=== PATIENT | male | born 2000 | race Hispanic/Latino ===

== ENCOUNTER 2024-12-23 21:07 | Emergency (ER) | payer OTHER ==
[~2024-12-23] VITALS: Ht 170.2 cm; Wt 83.9 kg
[2024-12-23 21:26] VITALS: TEMP 98.4
[2024-12-23 21:59] LABS: BASOPHILS % 0.2 % (0.0-1.0); EOSINOPHILS % 0.3 % (0.0-6.0); HEMATOCRIT 40.4 % (38.2-49.6); HEMOGLOBIN 13.9 g/dL (14.0-18.0); LYMPHOCYTES # (AUTO) 2.2 (1.0-3.2); LYMPHOCYTES % 16.3 % (18.0-39.1); MEAN CORPUSCULAR HGB CONC 34.4 g/dL (31-35); MEAN CORPUSCULAR VOLUME 87.3 fL (81-99); MONOCYTES # (AUTO) 1.1 (0.2-0.8); MONOCYTES % 8.1 % (4.4-11.3); NEUTROPHILS # (AUTO) 10.1 (2.1-6.9); NEUTROPHILS % 74.8 % (38.7-80.0); PLATELET COUNT 249 x10e3/uL (140-360); RED BLOOD COUNT 4.63 x10e6/uL (4.3-5.7); RED CELL DISTRIBUTION WIDTH 12.5 % (11.7-14.4); WHITE BLOOD COUNT 13.53 x10e3/uL (4.8-10.8)
[2024-12-23 22:01] LABS: ALBUMIN 4.3 g/dL (3.5-5.0); ALBUMIN/GLOBULIN RATIO 1.4 (0.8-2.0); ANION GAP 15.4 mmol/L (8-16); BILIRUBIN,TOTAL 0.5 mg/dL (0.2-1.2); CALCIUM 9.1 mg/dL (8.4-10.2); TOTAL PROTEIN 7.3 g/dL (6.5-8.1)
[2024-12-23 22:05] LABS: POTASSIUM 3.4 mmol/L (3.5-5.1)
[2024-12-23 22:27] VITALS: PULSE 73; RESP 17
[2024-12-23 23:15] VITALS: BP 133/91; PULSE 71; RESP 17; O2SAT 100
[2024-12-24] MEDS ORDERED: IOPAMIDOL 370 MG/ML 100 ML INFUS..BTL INJ ONE (05:47)
== END 2024-12-23 23:11 | disposition home or self-care (01) ==
LOC: ER 21:38
DX: M54.2 Cervicalgia (principal); M25.561 Pain in right knee; M25.571 Pain in right ankle and joints of right foot; S80.211A Abrasion, right knee, initial encounter; S30.810A Abrasion of lower back and pelvis, initial encounter; V23.49XA Other motorcycle driver injured in collision with car, pick-up truck or van in traffic accident, initial encounter; Y92.488 Other paved roadways as the place of occurrence of the external cause; F17.210 Nicotine dependence, cigarettes, uncomplicated
CPT/HCPCS: 36415; 70450; 71260; 72125; 73562; 73610; 74177; 80053; 85025; 99283; Q9967